=== PATIENT | male | born 1950 | race Caucasian/White ===

== ENCOUNTER 2022-03-24 01:57 | Outpatient (CLI) | payer MEDICARE, SELFPAY ==
--- NOTE | 2022-03-24 08:45 | DI.NM_ITS ---
APPROVED REPORT Exam: Pharmacologic Patient Location: Out-Patient Room/Bed: Stress Nurse: Mei Davis RN Ordering Provider:NAT LEVINE, Contact Number: [phone] BMI: 23.24 Baseline Rhythm: Sinus Bradycardia Comment: RBBB Indications: Tight chest, other chest pain Medical History Medical History: Hypertension, COPD, tobacco use (recently quit) Cardiac Medications: Breztri inhaler, omeprazole Allergies: NKDA Cardiac Risk Factors: Hypertension, COPD, smoker (recently quit) Previous Cardiac Procedures: None Pretest Chest Pain Characteristics: Basline mild SOB Exercise History: Sedentary Physical Disabilities: Significantly limited endurance due to SOB Lung Sounds: Diminished lower lobes Heart Sounds: Regular Stress Test Details Test: Pharmacologic stress was paired with low level exercise. Reason for pharmacologic stress test: physical limitation. Nuclear Acquisition: Rest Tc-99m/Stress Tc-99m 1 day Rest Isotope: Tc-99m Sestamibi. Dose: 10.8 Date: 03/24/2022 Injection Time: 0820 Stress Isotope: Tc-99m Sestamibi. Dose: 30.0 Date: 03/24/2022 Injection Time: 1000 HR Resting HR Supine: 54 bpm Max Heart Rate (APMHR): 150.390151 bpm Resting HR Standin bpm Target HR (85% APMHR): 127.930484 bpm Max HR Achieved: 112 bpm % of APMHR: 74.67 Recovery HR: 61 bpm BP Resting BP Supine: 166/84 mmHg Resting BP Standin/86 mmHg Max BP: 166/84 mmHg Recovery BP: 152/82 mmHg ECG Resting ECG: Sinus Bradycardia, RBBB Ectopy: None Stress ECG: Sinus Tachycardia, RBBB ST Change: No significant ST segment changes noted, Nondiagnostic low heart rate Arrhythmia: Rare PAC Recovery ECG: Sinus Rhythm, RBBB Recovery ST Change: No significant ST segment changes noted, Nondiagnostic low heart rate Recovery Arrhythmia: Occasional PACs, rare PVC Clinical Stress Symptoms: General Fatigue, Chest pain, Dyspnea Exercise capacity: 1.46 METs Rate Pressure Product: [id number] Stress ECG Conclusion 1. Resting electrocardiogram showed right bundle branch block 2. Patient underwent low-level exercise testing coupled with pharmacologic stress with regadenoson 3. Peak heart rate achieved was 74% of predicted for age 4. Electrocardiographically the test was nondiagnostic due to inadequate heart rate 5. See MPI report Stress Test Summary STAGE HR BP Symptoms NOTES Supine 54 166/84 Baseline mild SOB SpO2 94% 1 min post Lexiscan injection 92 130/84 Severe SOB, chest pressure 7/10 SpO2 97% 3 min post Lexiscan injection 79 152/86 Symptoms improving, mild SOB, chest pressure 4/10 SpO2 96% 6 min post Lexiscan injection 61 152/82 SOB and chest pressure resolved SpO2 96% Pharmacologic stress was paired with low level exercise due to significantly limited endurance from S OB. Patient walked on treadmill at 0.6 mph and 0% grade for 3 minutes during Regadenoson administrati on. Symptoms of chest pressure and SOB experienced while walking shortly after injection of Regadenos on. Symptoms resolved by minute 4 of recovery. MPI Conclusion There is no significant myocardial ischemia. There is no evidence of prior infarction EF 64%, normal wall motion Radiologist Interpretation Radiologist Interpretation by: Omar Cardoso MD Interpretation Date/Time: 03/24/2022 16:57:13
[2022-03-24] MEDS: Regadenoson 0.4 MG/5 ML SYR IVP (10:31)
== END 2022-03-24 02:17 ==
LOC: DI 01:57
PROVIDERS: Visit Provider Physician Assistant Medical
DX: R07.89 Other chest pain (principal)
CPT/HCPCS: 78452; 93016; 93018; 93017; J2785

== ENCOUNTER → 2023-08-17 15:35 | Outpatient (BNVA) | payer MEDICARE, SELFPAY | PROVIDERS: Visit Provider Student in an Organized Health Care Education/Training Program | DX: J44.9 Chronic obstructive pulmonary disease, unspecified (principal); J98.4 Other disorders of lung; C34.32 Malignant neoplasm of lower lobe, left bronchus or lung; F17.200 Nicotine dependence, unspecified, uncomplicated | CPT/HCPCS: 99443 ==

== ENCOUNTER → 2023-11-14 13:48 | Outpatient (BNVA) | payer MEDICARE, SELFPAY | PROVIDERS: Visit Provider Student in an Organized Health Care Education/Training Program | DX: J44.9 Chronic obstructive pulmonary disease, unspecified (principal); F17.210 Nicotine dependence, cigarettes, uncomplicated; C34.32 Malignant neoplasm of lower lobe, left bronchus or lung; M76.61 Achilles tendinitis, right leg; T36.8X5A Adverse effect of other systemic antibiotics, initial encounter | CPT/HCPCS: 99214 ==

== ENCOUNTER → 2023-12-06 08:51 | Outpatient (BNVA) | payer MEDICARE, SELFPAY | PROVIDERS: Visit Provider Physician Assistant Surgical | DX: J44.9 Chronic obstructive pulmonary disease, unspecified (principal); C34.32 Malignant neoplasm of lower lobe, left bronchus or lung; F17.200 Nicotine dependence, unspecified, uncomplicated; M67.88 Other specified disorders of synovium and tendon, other site; S86.011A Strain of right Achilles tendon, initial encounter; X58.XXXA Exposure to other specified factors, initial encounter | CPT/HCPCS: 99214 ==

== ENCOUNTER → 2023-12-07 13:07 | Outpatient (BNVA) | payer MEDICARE, SELFPAY | PROVIDERS: PCP Physician Assistant Medical; Referring Provider Physician Assistant Medical | DX: S86.011A Strain of right Achilles tendon, initial encounter (principal); X58.XXXA Exposure to other specified factors, initial encounter; M76.62 Achilles tendinitis, left leg | CPT/HCPCS: 99213 ==

== ENCOUNTER → 2024-01-04 14:03 | Outpatient (BNVA) | payer MEDICARE, SELFPAY | PROVIDERS: PCP Physician Assistant Medical; Referring Provider Physician Assistant Medical; Visit Provider Student in an Organized Health Care Education/Training Program | DX: M76.62 Achilles tendinitis, left leg (principal); S86.011A Strain of right Achilles tendon, initial encounter; X58.XXXA Exposure to other specified factors, initial encounter | CPT/HCPCS: 99213 ==

== ENCOUNTER → 2024-02-14 13:47 | Outpatient (BNVA) | payer MEDICARE, SELFPAY | PROVIDERS: PCP Physician Assistant Medical; Referring Provider Physician Assistant Medical; Visit Provider Nurse Practitioner Gerontology | DX: N40.1 Benign prostatic hyperplasia with lower urinary tract symptoms (principal); N13.8 Other obstructive and reflux uropathy; R97.20 Elevated prostate specific antigen [PSA] | CPT/HCPCS: 51798; 81003; 99215 ==

== ENCOUNTER 2024-04-03 05:22 | Outpatient (CLI) | payer MEDICARE, SELFPAY ==
[2024-04-03 18:05] LABS: PSA, Diagnostic 8.3 ng/mL (<=6.5)
== END 2024-04-03 05:23 | disposition home or self-care (01) ==
LOC: LBO 05:22
PROVIDERS: PCP Physician Assistant Medical; Visit Provider Nurse Practitioner Gerontology
DX: N40.1 Benign prostatic hyperplasia with lower urinary tract symptoms (principal); N13.8 Other obstructive and reflux uropathy; R97.20 Elevated prostate specific antigen [PSA]
CPT/HCPCS: 36415; 84153

== ENCOUNTER → 2024-04-10 07:56 | Outpatient (BNVA) | payer MEDICARE, SELFPAY | PROVIDERS: PCP Physician Assistant Medical; Referring Provider Physician Assistant Medical; Visit Provider Nurse Practitioner Gerontology | DX: N40.1 Benign prostatic hyperplasia with lower urinary tract symptoms (principal); N13.8 Other obstructive and reflux uropathy; R97.20 Elevated prostate specific antigen [PSA] | CPT/HCPCS: 51798; 99213 ==

== ENCOUNTER → 2024-06-05 13:01 | Outpatient (BNVA) | payer MEDICARE, SELFPAY | PROVIDERS: PCP Physician Assistant Medical; Visit Provider Physician Assistant Surgical | DX: J44.9 Chronic obstructive pulmonary disease, unspecified (principal); F17.200 Nicotine dependence, unspecified, uncomplicated; C34.32 Malignant neoplasm of lower lobe, left bronchus or lung; S86.011D Strain of right Achilles tendon, subsequent encounter; X58.XXXD Exposure to other specified factors, subsequent encounter | CPT/HCPCS: 99214 ==